=== PATIENT | female | born 1935 ===

== ENCOUNTER 2020-08-04 16:59 | Inpatient (IN) | payer OTHER ==
[~2020-08-04 16:59] MED LIST: ARMOUR THYROID60 MG PO; BIOTENE MOIST44.3 ML PO; CALCIUM 500 +1 EAC3 PO; DAILY MULTIPLE1 TA6 PO; DEPLIN-ALGAL O1 EACH PO; ESTROGEN SL; MAGNESIUM100 M1 PO; MILK THISTLE140 MG PO; PROGESTERONE CREAM T; REXULTI1 MG PO; SAM-E400 MG PO; VITAMIN B COMPL1 CA1 PO; VITAMIN B-12100 MCG PO
[2020-08-04] MEDS ORDERED: MEMORY PO (18:40)
[2020-08-04] MEDS ORDERED: [UNRECOGNIZED DRUG - OTHER] PO (18:40)
[2020-08-04] MEDS ORDERED: LEVOTHYROXINE75 MC1 PO (18:41)
[2020-08-04] MEDS ORDERED: RISPERDAL0.5 MG PO (18:42)
[2020-08-04] MEDS ORDERED: CELEXA10 MG PO (18:43)
[2020-08-04] MEDS ORDERED: MYLANTA MAXIMU355 M1 PO (18:44)
[2020-08-04] MEDS ORDERED: PEPTO-BISM262 MG/11 PO (18:45)
[2020-08-04] MEDS ORDERED: MILK OF MA400 MG/51 PO (18:46)
[2020-08-04] MEDS ORDERED: TYLENOL325 M1 PO (18:47)
[2020-08-04 18:56] VITALS: BP 116/63
[2020-08-04 20:00] VITALS: BP 149/82
[2020-08-04 21:52] LABS: BILIRUBIN Negative (Negative); BLOOD Negative (Negative); CLARITY Clear (Clear); COLOR Yellow (Yellow); GLUCOSE Negative (Negative); KETONE Negative (Negative); LEUKO ESTERASE Trace (Negative); NITRITE Negative (Negative); PH 6.5 (4.5-8.0)
[2020-08-04 21:57] LABS: BACTERIA 2+; EPITHELIAL CELLS 0-2; RBC 0-2 rbc/hpf (0-2)
[2020-08-05 06:21] LABS: BASO # 0.1 10*3/uL (0.0-0.1); EOS # 0.3 10*3/uL (0.0-0.4); HEMATOCRIT 40.5 % (37.0-47.0); LYMPH # 2.2 10*3/uL (1.3-4.4); LYMPH % 31.9 % (27.0-41.0); MEAN CELL VOLUME 92.7 fl (81.0-99.0); MEAN CORPUSCULAR HGB 30.7 pg (27.0-31.0); MEAN CORPUSCULAR HGB CONC 33.1 g/dl (33.0-37.0); MEAN PLATELET VOLUME 9.1 fl (9.6-12.3); MONO # 0.7 10*3/uL (0.1-1.0); MONO % 10.3 % (3.0-9.0); NEUT # 3.5 10*3/uL (2.3-7.9); NEUT % 51.5 % (47.0-73.0); PLATELET COUNT AUTOMATED 242 10*3/uL (130-400); RED BLOOD COUNT 4.37 10*6/uL (4.10-5.10); RED CELL DISTRI WIDTH 12.5 % (0-14.5); WHITE BLOOD COUNT 6.8 10*3/uL (4.8-10.8)
[2020-08-05 06:32] LABS: ALBUMIN 3.4 gm/dl (3.1-4.5); BUN 13 mg/dl (7-24); CHLORIDE 110 mmol/L (98-107); CHOLESTEROL 183 mg/dL (<200); POTASSIUM 3.4 mmol/L (3.5-5.1); SGPT/ALT 15 U/L (12-78); SODIUM 144 mmol/L (136-145); TRIGLYCERIDES 107 mg/dl (<150)
[2020-08-05 06:42] LABS: ALKALINE PHOSPHATASE 78 U/L (45-117); CREATININE 0.59 mg/dL (0.55-1.02); LDL CHOLESTEROL 101 mg/dL (9-159); SGOT/AST 11 IU/L (3-35); THYROID STIM HORMONE (HS) 0.832 uIU/ml (0.358-4.75); TOTAL PROTEIN 6.9 gm/dL (6.4-8.2)
[2020-08-05 07:15] VITALS: BP 110/53
[2020-08-05 10:17] LABS: VITAMIN D, 25-HYDROXY 33.4 ng/mL (30-100)
[2020-08-05 20:00] VITALS: BP 143/58
[2020-08-06 07:35] VITALS: BP 140/58
[2020-08-06 20:00] VITALS: BP 133/68
[2020-08-07 07:32] VITALS: BP 155/86
[2020-08-07 19:10] VITALS: BP 127/86
[2020-08-08 07:16] VITALS: BP 138/60
[2020-08-08 20:14] VITALS: BP 142/61
[2020-08-09 07:01] VITALS: BP 144/62
[2020-08-09 19:02] VITALS: BP 155/72
[2020-08-10 08:00] VITALS: BP 138/54
[2020-08-10 20:00] VITALS: BP 110/62; BP 133/53
[2020-08-11 08:02] VITALS: BP 146/71
[2020-08-11 20:00] VITALS: BP 132/65
[2020-08-12 07:47] VITALS: BP 141/62
[2020-08-12 20:00] VITALS: BP 137/64
[2020-08-13 07:19] VITALS: BP 122/50
[2020-08-13] MEDS ORDERED: RIVASTIGMINE1 EAC2 T (10:18)
[2020-08-13] MEDS ORDERED: HYDROXYZINE HCL25 MG PO (10:18)
[2020-08-13] MEDS ORDERED: INVEGA1.5 MG PO (10:18)
[2020-08-13] MEDS ORDERED: B121000 MCG/1 IM (10:21)
[2020-08-13] MEDS ORDERED: MEMANTINE HCL10 MG PO (10:21)
[2020-08-13] MEDS ORDERED: VITAMIN D3125 MC1 PO (10:21)
== END 2020-08-13 12:30 | DRG 883 ==
LOC: 3N 16:59
PROVIDERS: ADMIT Psychiatry & Neurology Psychiatry; ATTEND Psychiatry & Neurology Psychiatry
DX: F63.81 Intermittent explosive disorder (principal); F01.51 Vascular dementia, unspecified severity, with behavioral disturbance; F33.9 Major depressive disorder, recurrent, unspecified; G30.9 Alzheimer's disease, unspecified; F41.9 Anxiety disorder, unspecified; M79.7 Fibromyalgia; K21.9 Gastro-esophageal reflux disease without esophagitis; I48.91 Unspecified atrial fibrillation; E89.0 Postprocedural hypothyroidism; E06.3 Autoimmune thyroiditis; F02.80 Dementia in other diseases classified elsewhere, unspecified severity, without behavioral disturbance, psychotic disturbance, mood disturbance, and anxiety; Z85.3 Personal history of malignant neoplasm of breast; Z85.850 Personal history of malignant neoplasm of thyroid; Z80.8 Family history of malignant neoplasm of other organs or systems